=== PATIENT | female | born 1975 | race Caucasian/White ===

== ENCOUNTER 2019-02-19 07:54 | Day surgery (SDC) | payer OTHER ==
[~2019-02-19] VITALS: Ht 167.6 cm; Wt 91.2 kg
[2019-02-19] MEDS ORDERED: LEVO0.124 PO (08:15)
[2019-02-19] MEDS ORDERED: ALPR0.252 PO (08:15)
[2019-02-19] MEDS ORDERED: SEVOFLURANE 250 ML BTL INH ONE (10:00)
[2019-02-19] MEDS ORDERED: ONDANSETRON 4 MG/2 ML VIAL ONE (10:00)
[2019-02-19] MEDS ORDERED: KETOROLAC 30 MG/ML VIAL ONE (10:00)
[2019-02-19] MEDS ORDERED: DEXAMETHASONE 4 MG/ML VIAL ONE (10:00)
[2019-02-19] MEDS ORDERED: PROPOFOL 200 MG/20 ML VIAL IV ONE (10:00)
[2019-02-19] MEDS ORDERED: MIDAZOLAM 2 MG/2 ML VIAL ONE (10:08)
[2019-02-19] MEDS ORDERED: fentaNYL 0.05 MG/ML VIAL ONE (10:08)
[2019-02-19] MEDS ORDERED: MEPERIDINE 25 MG/ML SYR ONE (10:09)
[2019-02-19] MEDS ORDERED: BUPIVACAINE-MPF 0.25% 30 ML VIAL INJ ONE (10:12)
[2019-02-19] MEDS ORDERED: LACTATED RINGERS 1,000 ML IV SCH (10:29)
[2019-02-19] MEDS ORDERED: diphenhydrAMINE 50 MG/ML VIAL IVP PRN (10:30)
[2019-02-19] MEDS ORDERED: MEPERIDINE 25 MG/ML SYR IVP PRN (10:30)
[2019-02-19] MEDS ORDERED: ONDANSETRON 4 MG/2 ML VIAL IVP PRN (10:30)
[2019-02-19] MEDS ORDERED: HYDROmorphone 1 MG/ML AMP IVP PRN ×2 (10:30→11:10)
[2019-02-19] MEDS ORDERED: NEOMYCIN/POLYMYXIN/BACITRACIN OIN 15 GM TUBE TP ONE (11:00)
[2019-02-19] MEDS ORDERED: NACL 0.9% 1,000 ML IV SCH (11:06)
[2019-02-19] MEDS ORDERED: HYDROcodone/APAP 5/325 MG 1 TAB TAB PO PRN (11:10)
[2019-02-19] MEDS ORDERED: ONDANSETRON 4 MG/2 ML VIAL IV PRN (11:10)
[2019-02-19] MEDS ORDERED: MORPHINE SULFATE 4 MG/ML SYR IV PRN (11:10)
[2019-02-19] MEDS ORDERED: MORPHINE SULFATE 2 MG/ML SYR IVP PRN (11:10)
== END 2019-02-19 12:15 | disposition home or self-care (01) ==
LOC: MDS 07:54 → MMU 07:55 → MDS 12:15
PROVIDERS: ATTEND Surgery
DX: R59.9 Enlarged lymph nodes, unspecified (principal); L91.8 Other hypertrophic disorders of the skin; F41.9 Anxiety disorder, unspecified; E66.9 Obesity, unspecified; Z68.32 Body mass index [BMI] 32.0-32.9, adult; Z85.850 Personal history of malignant neoplasm of thyroid; Z90.710 Acquired absence of both cervix and uterus; Z98.890 Other specified postprocedural states; Z79.899 Other long term (current) drug therapy
CPT/HCPCS: 11200; 38520; 71045; 88304; 88305; 93005; J0690; J1100; J1885; J2175; J2250; J2405; J2704; J3010; J3490; J7060; J7120

== ENCOUNTER 2019-04-23 05:56 | Day surgery (SDC) | payer OTHER ==
[~2019-04-23] VITALS: Ht 167.6 cm; Wt 90.7 kg
[~2019-04-23 05:56] MED LIST: ALPR0.252 PO; LEVO0.124 PO
[2019-04-23] MEDS ORDERED: BUPIVACAINE-MPF/EPI 0.25% 30 ML VIAL INJ ONE (06:59)
[2019-04-23] MEDS ORDERED: KETOROLAC 30 MG/ML VIAL ONE (07:30)
[2019-04-23] MEDS ORDERED: PROPOFOL 200 MG/20 ML VIAL IV ONE ×2 (07:30→09:25)
[2019-04-23] MEDS ORDERED: SEVOFLURANE 250 ML BTL INH ONE (07:30)
[2019-04-23] MEDS ORDERED: ROCURONIUM 50 MG/5 ML VIAL IV ONE (07:30)
[2019-04-23] MEDS ORDERED: DEXAMETHASONE 4 MG/ML VIAL ONE (07:30)
[2019-04-23] MEDS ORDERED: GLYCOPYRROLATE 0.2 MG/ML VIAL ONE (07:30)
[2019-04-23] MEDS ORDERED: PHENYLEPHRINE 10 MG/ML VIAL ONE (07:30)
[2019-04-23] MEDS ORDERED: fentaNYL 0.05 MG/ML VIAL ONE (07:51)
[2019-04-23] MEDS ORDERED: MIDAZOLAM 2 MG/2 ML VIAL ONE (07:51)
[2019-04-23] MEDS ORDERED: MEPERIDINE 50 MG/ML SYR ONE (07:52)
[2019-04-23] MEDS ORDERED: LACTATED RINGERS 1,000 ML IV SCH (08:10)
[2019-04-23] MEDS ORDERED: MEPERIDINE 25 MG/ML SYR IVP PRN (08:10)
[2019-04-23] MEDS ORDERED: ONDANSETRON 4 MG/2 ML VIAL IVP PRN (08:10)
[2019-04-23] MEDS ORDERED: diphenhydrAMINE 50 MG/ML VIAL IVP PRN (08:10)
[2019-04-23] MEDS ORDERED: HYDROmorphone 1 MG/ML AMP IVP PRN ×2 (08:10→09:25)
[2019-04-23] MEDS ORDERED: MORPHINE SULFATE 2 MG/ML SYR IVP PRN (09:25)
[2019-04-23] MEDS ORDERED: MORPHINE SULFATE 4 MG/ML SYR IV PRN (09:25)
[2019-04-23] MEDS ORDERED: ONDANSETRON 4 MG/2 ML VIAL IV PRN (09:25)
== END 2019-04-23 11:09 | disposition home or self-care (01) ==
LOC: MDS 05:56 → MMU 05:59 → MDS 11:09
PROVIDERS: ATTEND Surgery
DX: K80.10 Calculus of gallbladder with chronic cholecystitis without obstruction (principal); E66.9 Obesity, unspecified; E03.9 Hypothyroidism, unspecified; F41.9 Anxiety disorder, unspecified; Z85.850 Personal history of malignant neoplasm of thyroid; Z98.890 Other specified postprocedural states; Z90.710 Acquired absence of both cervix and uterus; Z79.899 Other long term (current) drug therapy
CPT/HCPCS: 47562; 71045; 82374; 88304; J0690; J1100; J1885; J2175; J2250; J2370; J2704; J3010; J3490; J7030; J7060; J7120

== ENCOUNTER 2019-06-23 08:36 | Emergency (ER) | payer OTHER ==
[~2019-06-23] VITALS: Ht 167.6 cm; Wt 94.3 kg
[2019-06-23 08:41] VITALS: BP 147/92
[2019-06-23] MEDS ORDERED: predniSONE 20 MG TAB PO ONE (09:00)
[2019-06-23 09:47] VITALS: BP 147/92
== END 2019-06-23 09:47 | disposition home or self-care (01) ==
LOC: MED 08:36
DX: J02.8 Acute pharyngitis due to other specified organisms (principal); B97.89 Other viral agents as the cause of diseases classified elsewhere; E07.9 Disorder of thyroid, unspecified; Z90.49 Acquired absence of other specified parts of digestive tract; Z98.890 Other specified postprocedural states; Z79.899 Other long term (current) drug therapy
CPT/HCPCS: 99283; J7512

== ENCOUNTER 2019-08-06 16:11 | Emergency (ER) | payer OTHER ==
[~2019-08-06] VITALS: Ht 165.1 cm; Wt 94.1 kg
[2019-08-06 16:21] VITALS: BP 151/95
--- NOTE | 2019-08-06 16:22 | NUR ---
SRIKANTH OLIVARES. TO LOBBY, ARNAUD.
--- NOTE | 2019-08-06 16:43 | NUR ---
PT AMB TO BED 7
--- NOTE | 2019-08-06 16:46 | NUR ---
44/F BIB SELF C/O NAUSEA,MID UPPER BACK PAIN X5 DAYS. DENIES DYSURIA OR INJURY/TRAUMA. PATIENT STATES PAIN OF 8/10 1AT THIS TIME. PATIENT POSITIONED FOR COMFORT; HOB ELEVATED; BEDRAILS UP X; BED DOWN. ER MD MADE AWARE OF PT STATUS.
[2019-08-06] MEDS ORDERED: KETOROLAC 30 MG/ML VIAL IM ONE (17:35)
--- NOTE | 2019-08-06 18:50 | NUR ---
X RAY AT BEDSIDE
--- NOTE | 2019-08-06 19:10 | NUR ---
Pt report given to LIBAN RN. Transfer of care at this time.
[2019-08-06 19:18] VITALS: BP 132/87
--- NOTE | 2019-08-06 19:18 | NUR ---
Patient discharged with v/s stable. Written and verbal after care instructions given and explained. Patient alert, oriented and verbalized understanding of instructions. Ambulatory with steady gait. All questions addressed prior to discharge. ID band removed. Patient advised to follow up with PMD. Rx of FLEXERIL 10MG AND NAPROXEN 375MG given. Patient educated on indication of medication including possible reaction and side effects. Opportunity to ask questions provided and answered.
== END 2019-08-06 19:18 | disposition home or self-care (01) ==
LOC: MED 16:11
DX: S29.012A Strain of muscle and tendon of back wall of thorax, initial encounter (principal); Z85.850 Personal history of malignant neoplasm of thyroid; Z90.710 Acquired absence of both cervix and uterus; Z90.49 Acquired absence of other specified parts of digestive tract; Z79.899 Other long term (current) drug therapy; X58.XXXA Exposure to other specified factors, initial encounter; Y92.89 Other specified places as the place of occurrence of the external cause; Y93.89 Activity, other specified; Y99.8 Other external cause status
CPT/HCPCS: 71045; 81002; 96372; 99283; J1885

== ENCOUNTER 2019-08-13 18:29 | Emergency (ER) | payer OTHER ==
[~2019-08-13] VITALS: Ht 165.1 cm; Wt 95.3 kg
[2019-08-13 19:11] VITALS: BP 146/96
[2019-08-13 20:11] LABS: BASOPHILS # (AUTO) 0.1 K/uL (0.00-0.22); EOSINOPHILS # (AUTO) 0.2 K/uL (0-0.4); EOSINOPHILS % (AUTO) 1.9 % (0.0-4.0); HEMATOCRIT 42.9 % (36-48); HEMOGLOBIN 13.8 g/dL (12.0-16.0); LYMPHOCYTES # (AUTO) 2.7 K/uL (2.5-16.5); LYMPHOCYTES % (AUTO) 27.6 % (20.5-51.1); MEAN CORPUSCULAR HEMOGLOBIN 27 pg (27-31); MEAN CORPUSCULAR HGB CONC 32 g/dL (33-37); MEAN CORPUSCULAR VOLUME 84.7 fL (80-94); MONOCYTES # (AUTO) 0.5 K/uL (0.8-1.0); MONOCYTES % (AUTO) 5.2 % (1.7-9.3); NEUTROPHILS # (AUTO) 6.3 K/uL (1.8-7.7); NEUTROPHILS % (AUTO) 64.3 % (42.2-75.2); PLATELET COUNT (AUTO) 193 K/uL (140-450); RED BLOOD CELL COUNT(AUTO) 5.07 MIL/uL (4.20-5.40); RED CELL DISTRIBUTION WIDTH 13.8 % (11.6-13.7); WHITE BLOOD COUNT (AUTO) 9.8 K/uL (4.8-10.8)
[2019-08-13 20:28] LABS: ANION GAP 13.9 (8-16); CARBON DIOXIDE 28.2 mmol/L (21-32); CREATININE 0.6 mg/dL (0.6-1.3); POTASSIUM 4.1 mmol/L (3.5-5.1)
[2019-08-13 20:34] LABS: ALBUMIN 3.9 g/dL (3.4-5.0); TOTAL BILIRUBIN 0.8 mg/dL (0.0-1.0)
--- NOTE | 2019-08-13 21:29 | NUR ---
PT AMBULATED TO BED 08
--- NOTE | 2019-08-13 21:32 | NUR ---
PT CAME TO ER C/O EPIGASTRIC PAIN X3 DAYS. PT STATES "I FEEL BLOATED AND CONSTIPATED EVEN THOUGH I AM GOING TO THE BATHROOM." PT PAIN LEVEL 6/10, SHARP AND TENDER TO TOUCH. BOWEL SOUNDS ACTIVE X 4 QUADRANTS. ABDOMEN FIRM AND TENDER TO TOUCH. LAST BM TODAY 08/13/19, SOFT. PT ALSO HAS NAUSEA. NO V/D. NKA. MED HX: THYROID CANCER 2017, HYSTERECTOMY 2017, AND GALLBLADDER REMOVAL 2018. SAFETY MEASURES IN PLACE. WAITING FOR ERMD TO EVALUATE PT.
--- NOTE | 2019-08-13 21:40 | NUR ---
ULTRASOUND AT BEDSIDE
[2019-08-13] MEDS ORDERED: KETOROLAC 60 MG/2 ML VIAL IM ONE (22:15)
--- NOTE | 2019-08-13 22:50 | NUR ---
PT HAS NAUSEA. ERMD MADE AWARE.
[2019-08-13] MEDS ORDERED: ONDANSETRON 4 MG ODT PO ONE (22:55)
--- NOTE | 2019-08-13 23:15 | NUR ---
ERMD AT BEDSIDE
[2019-08-13 23:34] VITALS: BP 135/80
--- NOTE | 2019-08-13 23:34 | NUR ---
Patient discharged with v/s stable. Written and verbal after care instructions given and explained. Pt encouraged to avoid spicy and fatty foods. Patient alert, oriented and verbalized understanding of instructions. Ambulatory with steady gait. All questions addressed prior to discharge. ID band removed. Patient advised to follow up with PMD. Rx of zofran and prilosec was given. Patient educated on indication of medication including possible reaction and side effects. Opportunity to ask questions provided and answered.
== END 2019-08-13 23:34 | disposition home or self-care (01) ==
LOC: MED 18:29
DX: R10.13 Epigastric pain (principal); R11.0 Nausea; E89.0 Postprocedural hypothyroidism; Z85.850 Personal history of malignant neoplasm of thyroid; Z98.890 Other specified postprocedural states; Z90.710 Acquired absence of both cervix and uterus; Z90.49 Acquired absence of other specified parts of digestive tract; Z79.899 Other long term (current) drug therapy
CPT/HCPCS: 36415; 76705; 80053; 81002; 83690; 85025; 96372; 99284; J1885; Q0092; Q0162

== ENCOUNTER 2019-09-16 13:42 | Emergency (ER) | payer OTHER ==
[~2019-09-16] VITALS: Ht 165.1 cm; Wt 95.0 kg
[2019-09-16 13:59] VITALS: BP 117/64
--- NOTE | 2019-09-16 14:07 | NUR ---
Patient ambulated to bed 12. RN evaluating patient at bedside.
--- NOTE | 2019-09-16 14:37 | NUR ---
PT BIB SELF C/O INTERMITENT SHARP BL LOWER ABD PAIN X 4 DAYS. TX WITH NORCO AND IBUPROFEN, INCREASES W/ SITTING. + NAUSEA, - FEVER, - DIARRHEA, + FREQUENCY. PT REPORTS CONSTIPATIONS STATES LAST BM WAS TODAY. VSS ER MD TO SEE PT. MEDHX:THYROID CANCER, THYROIDECTOMY, GALSTONES, PARTIAL HYSTERECTOMY RX:LEVOTHYROXINE
[2019-09-16] MEDS ORDERED: LACTULOSE 20 GM/30 ML UDC PO ONE (15:00)
[2019-09-16] MEDS ORDERED: DICYCLOMINE HCL LIQUID 10 MG/5 ML UDC PO ONE (15:00)
[2019-09-16] MEDS ORDERED: KETOROLAC 60 MG/2 ML VIAL IM ONE (15:00)
--- NOTE | 2019-09-16 15:11 | NUR ---
US tech at bedside for exam.
[2019-09-16 16:00] LABS: APPEARANCE,URINE CLEAR (CLEAR); BILIRUBIN,URINE NEGATIVE (NEGATIVE); BLOOD, URINE NEGATIVE (NEGATIVE); COLOR,URINE YELLOW (YELLOW); LEUKOCYTE ESTERASE ,URINE NEGATIVE (NEGATIVE); NITRITE, URINE NEGATIVE (NEGATIVE); UGLUCOSE NEGATIVE (NEGATIVE)
[2019-09-16 16:24] VITALS: BP 117/64
== END 2019-09-16 16:24 | disposition home or self-care (01) ==
LOC: MED 13:42
DX: R10.2 Pelvic and perineal pain (principal); Z90.710 Acquired absence of both cervix and uterus; Z86.39 Personal history of other endocrine, nutritional and metabolic disease; Z79.899 Other long term (current) drug therapy
CPT/HCPCS: 74018; 76856; 81003; 81025; 96372; 99284; J1885; Q0092

== ENCOUNTER 2020-01-20 20:10 | Emergency (ER) | payer OTHER ==
[~2020-01-20] VITALS: Ht 165.1 cm; Wt 90.7 kg
[2020-01-20 20:20] VITALS: BP 120/82
--- NOTE | 2020-01-20 20:23 | NUR ---
TO LOBBY A/W BED AMBULATORY
--- NOTE | 2020-01-20 21:15 | NUR ---
PT MOVED TO BED 11
[2020-01-20] MEDS ORDERED: INTUBATION KIT MC ONE (21:17)
--- NOTE | 2020-01-20 21:50 | NUR ---
HELPING PRIMARY NURSE. PT C/O DIFFUSE ABD PAIN X 4 DAYS. PT DENIES N/V/D. PT DENIES URINARY SYMPTOMS. PT STATES HAVING GALLBLADDER REMOVED IN THE PAST. PT DENIES HAVING THIS PAIN IN PAST. PT ALSO STATE HAVING IRREGULAR BOWEL MOVEMENT. PT HAVING HYPER ACTIVE BOWEL SOUNDS. SKIN IS PINK/WARM/DRY; AAOX4 WITH EVEN AND STEADY GAIT; LUNGS CLEAR BL; HR EVEN AND REGULAR; PT DENIES ANY FEVER, CP, SOB, OR COUGH AT THIS TIME; VSS; PATIENT POSITIONED FOR COMFORT; HOB ELEVATED; BEDRAILS UP X2; BED DOWN. ER MD MADE AWARE OF PT STATUS.
[2020-01-20] MEDS ORDERED: KETOROLAC 30 MG/ML VIAL IVP ONE (22:50)
[2020-01-21 00:11] LABS: BASOPHILS # (AUTO) 0.1 K/uL (0.00-0.22); BASOPHILS % (AUTO) 0.8 % (0.0-2.0); EOSINOPHILS # (AUTO) 0.3 K/uL (0-0.4); EOSINOPHILS % (AUTO) 3.2 % (0.0-4.0); HEMATOCRIT 38.1 % (36-48); HEMOGLOBIN 13.1 g/dL (12.0-16.0); LYMPHOCYTES # (AUTO) 2.8 K/uL (2.5-16.5); LYMPHOCYTES % (AUTO) 33.1 % (20.5-51.1); MEAN CORPUSCULAR HEMOGLOBIN 28 pg (27-31); MEAN CORPUSCULAR HGB CONC 34 g/dL (33-37); MEAN CORPUSCULAR VOLUME 81.6 fL (80-94); MONOCYTES # (AUTO) 0.5 K/uL (0.8-1.0); NEUTROPHILS # (AUTO) 4.8 K/uL (1.8-7.7); NEUTROPHILS % (AUTO) 56.9 % (42.2-75.2); PLATELET COUNT (AUTO) 195 K/uL (140-450); RED BLOOD CELL COUNT(AUTO) 4.67 MIL/uL (4.20-5.40); RED CELL DISTRIBUTION WIDTH 13.6 % (11.6-13.7); WHITE BLOOD COUNT (AUTO) 8.4 K/uL (4.8-10.8)
[2020-01-21] MEDS ORDERED: KETOROLAC 30 MG/ML VIAL ONE (00:15)
[2020-01-21 00:38] LABS: ALBUMIN 3.8 g/dL (3.4-5.0); ANION GAP 8.9 (8-16); CREATININE 0.9 mg/dL (0.6-1.3); POTASSIUM 3.9 mmol/L (3.5-5.1); TOTAL BILIRUBIN 0.4 mg/dL (0.0-1.0)
[2020-01-21 01:24] VITALS: BP 142/95
== END 2020-01-21 01:24 | disposition home or self-care (01) ==
LOC: MED 20:10
DX: R10.13 Epigastric pain (principal); K59.00 Constipation, unspecified; Z90.49 Acquired absence of other specified parts of digestive tract; Z90.89 Acquired absence of other organs
CPT/HCPCS: 36415; 74018; 74176; 80053; 81002; 81025; 83690; 85025; 96374; 99284; J1885

== ENCOUNTER 2020-03-11 17:12 | Emergency (ER) | payer OTHER ==
[~2020-03-11] VITALS: Ht 167.6 cm; Wt 96.2 kg
[2020-03-11 17:14] VITALS: BP 177/100
--- NOTE | 2020-03-11 17:21 | NUR ---
pt ambulated to bathroom, steady gait.
--- NOTE | 2020-03-11 17:30 | NUR ---
44 Y/F PRESENTS TO ED FOR RLQ and LLQ pain x 4 days. + Nausea - V/D. PT REPORTS 8/10 CONSTANT SHARP PAIN THAT RADIATED ALL THROUGHOUT ABD. PT DENIES ANY ALLEVIATING OR AGGRAVATING FACTORS. Last BM 03/11/20, small, hard. PT REPORTS SHE HAD A BETTER BM WHILE HERE IN THE ED AND FEELS LESS BLOATED. Pt taking stool softeners every day. Pt dx with constipation in January. PT A &O X 4. RR EVEN, LUNGS CLEAR. ABD LARGE, ROUND, TENDER UPON PALPATION. BS ACTIVE. Med hx: thyroid cancer, gallbladder removal NKDA
--- NOTE | 2020-03-11 17:32 | NUR ---
Dr. Mo at bedside.
[2020-03-11 17:57] VITALS: BP 149/77
--- NOTE | 2020-03-11 17:57 | NUR ---
Patient discharged with v/s stable. Written and verbal after care instructions given and explained. Patient alert, oriented and verbalized understanding of instructions. Ambulatory with steady gait. All questions addressed prior to discharge. ID band removed. Patient advised to follow up with PMD. Rx of Zofran and Omeprazole was given. Patient educated on indication of medication including possible reaction and side effects. Opportunity to ask questions provided and answered.
== END 2020-03-11 17:57 | disposition home or self-care (01) ==
LOC: MED 17:12
DX: K59.00 Constipation, unspecified (principal); K21.9 Gastro-esophageal reflux disease without esophagitis; R03.0 Elevated blood-pressure reading, without diagnosis of hypertension; E07.9 Disorder of thyroid, unspecified; F41.9 Anxiety disorder, unspecified; Z85.850 Personal history of malignant neoplasm of thyroid; Z90.49 Acquired absence of other specified parts of digestive tract; Z90.710 Acquired absence of both cervix and uterus; Z79.899 Other long term (current) drug therapy
CPT/HCPCS: 81002; 81025; 99283

== ENCOUNTER 2020-09-15 13:05 | Emergency (ER) | payer OTHER ==
[~2020-09-15] VITALS: Ht 167.6 cm; Wt 90.7 kg
--- NOTE | 2020-09-15 13:10 | NUR ---
Note margie in EDM - 09/15/20 at 1344 by MED PT C/O PROGRESSIVELY WORSENING CONSTANT RJ ABDOMINAL PAIN RADIATING TO LOWER BACK ACCOMPANIED BY FREQUECY OF URINATION, ODOROUS/YELLOWISH DISCHARGE, VAGINAL ITCHINESS, AND DYSURIA FOR 7 DAYS. DENIES FEVER, CHILLS, COUGH, OR SICK CONTACT.
[2020-09-15 13:18] VITALS: BP 152/91
--- NOTE | 2020-09-15 13:20 | NUR ---
PT C/O PROGRESSIVELY WORSENING CONSTANT RJ ABDOMINAL PAIN RADIATING TO LOWER BACK ACCOMPANIED BY FREQUECY OF URINATION, ODOROUS/YELLOWISH DISCHARGE, VAGINAL ITCHINESS, AND DYSURIA FOR 7 DAYS. DENIES FEVER, CHILLS, COUGH, OR SICK CONTACT.
[2020-09-15 13:57] LABS: BASOPHILS # (AUTO) 0.1 K/uL (0.00-0.22); BASOPHILS % (AUTO) 1.2 % (0.0-2.0); EOSINOPHILS # (AUTO) 0.2 K/uL (0-0.4); EOSINOPHILS % (AUTO) 2.1 % (0.0-4.0); HEMATOCRIT 40.2 % (36-48); HEMOGLOBIN 13.2 g/dL (12.0-16.0); LYMPHOCYTES # (AUTO) 2.4 K/uL (2.5-16.5); LYMPHOCYTES % (AUTO) 25.5 % (20.5-51.1); MEAN CORPUSCULAR HEMOGLOBIN 27 pg (27-31); MEAN CORPUSCULAR HGB CONC 33 g/dL (33-37); MEAN CORPUSCULAR VOLUME 82.7 fL (80-94); MONOCYTES # (AUTO) 0.6 K/uL (0.8-1.0); MONOCYTES % (AUTO) 6.1 % (1.7-9.3); NEUTROPHILS % (AUTO) 65.1 % (42.2-75.2); PLATELET COUNT (AUTO) 213 K/uL (140-450); RED BLOOD CELL COUNT(AUTO) 4.86 MIL/uL (4.20-5.40); WHITE BLOOD COUNT (AUTO) 9.2 K/uL (4.8-10.8)
[2020-09-15 14:02] LABS: APPEARANCE,URINE CLEAR (CLEAR); COLOR,URINE YELLOW (YELLOW)
[2020-09-15 14:03] LABS: BILIRUBIN,URINE NEGATIVE (NEGATIVE); BLOOD, URINE NEGATIVE (NEGATIVE); LEUKOCYTE ESTERASE ,URINE NEGATIVE (NEGATIVE); NITRITE, URINE NEGATIVE (NEGATIVE); PH,URINE 7.5 (5.0-9.0); UGLUCOSE NN (NEGATIVE)
[2020-09-15 14:11] LABS: ALBUMIN 3.6 g/dL (3.4-5.0); ANION GAP 12.1 (8-16); CREATININE 0.6 mg/dL (0.6-1.3); POTASSIUM 4.1 mmol/L (3.5-5.1); TOTAL BILIRUBIN 0.4 mg/dL (0.0-1.0)
[2020-09-15] MEDS ORDERED: ONDANSETRON 4 MG/2 ML VIAL IVP ONE (14:55)
[2020-09-15] MEDS ORDERED: KETOROLAC 30 MG/ML VIAL IVP ONE (14:55)
[2020-09-15] MEDS ORDERED: NACL 0.9% 1,000 ML IV ONE (15:00)
--- NOTE | 2020-09-15 15:58 | NUR ---
PT IS BRINGING BACK FROM CT SCAN VIA WC.
--- NOTE | 2020-09-15 16:44 | NUR ---
Dr. oM is evaluating the patient at bedside.
[2020-09-15 17:06] VITALS: BP 123/81
--- NOTE | 2020-09-15 17:06 | NUR ---
Patient discharged with v/s stable. Written and verbal after care instructions given and explained. Patient alert, oriented and verbalized understanding of instructions. Ambulatory with steady gait. All questions addressed prior to discharge. ID band removed. Patient advised to follow up with PMD. Rx of Naprosyn, Zofran, and Lomotil given. Patient educated on indication of medication including possible reaction and side effects. Opportunity to ask questions provided and answered.
== END 2020-09-15 17:06 | disposition home or self-care (01) ==
LOC: MED 13:05
DX: R10.9 Unspecified abdominal pain (principal); E07.9 Disorder of thyroid, unspecified; Z85.9 Personal history of malignant neoplasm, unspecified; Z90.89 Acquired absence of other organs; Z90.711 Acquired absence of uterus with remaining cervical stump; Z90.49 Acquired absence of other specified parts of digestive tract; Z79.899 Other long term (current) drug therapy
CPT/HCPCS: 36415; 74176; 80053; 81003; 83690; 85025; 96361; 96374; 96375; 99284; J1885; J2405; J7030

== ENCOUNTER 2020-11-27 17:42 | Emergency (ER) | payer OTHER ==
[~2020-11-27] VITALS: Ht 167.6 cm; Wt 93.0 kg
[2020-11-27 17:57] VITALS: BP 135/77
--- NOTE | 2020-11-27 18:05 | NUR ---
ANTONINA. HANDED ON URINE CUP.
[2020-11-27 19:30] VITALS: BP 135/77
--- NOTE | 2020-11-27 20:05 | NUR ---
SEEN AND EXAMINED BY ADARSH WITH ORDER AND CARRIED OUT
[2020-11-27] MEDS ORDERED: KETOROLAC 30 MG/ML VIAL IM ONE (23:00)
[2020-11-27] MEDS ORDERED: ACETAMINOPHEN EXTRA STRENGTH 500 MG TAB PO ONE (23:25)
--- NOTE | 2020-11-27 23:51 | NUR ---
Patient discharged with v/s stable. Written and verbal after care instructions given and explained. Patient alert, oriented and verbalized understanding of instructions. Ambulatory with steady gait. All questions addressed prior to discharge. ID band removed. Patient advised to follow up with PMD. Rx of bentyl and naproxen given. Patient educated on indication of medication including possible reaction and side effects. Opportunity to ask questions provided and answered.
== END 2020-11-27 23:51 | disposition home or self-care (01) ==
LOC: MED 17:42
DX: R10.32 Left lower quadrant pain (principal); R42 Dizziness and giddiness; E07.9 Disorder of thyroid, unspecified; Z79.899 Other long term (current) drug therapy; Z85.850 Personal history of malignant neoplasm of thyroid
CPT/HCPCS: 81002; 96372; 99284

== ENCOUNTER 2020-12-04 19:35 | Emergency (ER) | payer OTHER ==
[~2020-12-04] VITALS: Ht 167.6 cm; Wt 94.3 kg
[2020-12-04 19:40] VITALS: BP 121/85
--- NOTE | 2020-12-04 19:50 | NUR ---
PT ambulated to bed 04.
--- NOTE | 2020-12-04 20:05 | NUR ---
AMBULATED TO BED 4 FROM TRIAGE WITH C/O SEVERE ABDOMINAL PAIN AND BLOATING. WAS SEEN HERE A COUPLE OF WEEKS AGO FOR SIMILAR COMPLAINTS. PT STAES SHE IS FEELING AND IS BLOATING MORE. ABDOMEN IS LARGE, ROUND, FIRM, AND TENDER. BMS DESCRIBED IRREGULAR, NOT WNL. EXAMINED BY DR. HIGHTOWER
[2020-12-04 21:15] LABS: BASOPHILS # (AUTO) 0.1 K/uL (0.00-0.22); BASOPHILS % (AUTO) 0.8 % (0.0-2.0); EOSINOPHILS # (AUTO) 0.2 K/uL (0-0.4); EOSINOPHILS % (AUTO) 2.5 % (0.0-4.0); HEMATOCRIT 40.5 % (36-48); HEMOGLOBIN 13.1 g/dL (12.0-16.0); LYMPHOCYTES # (AUTO) 2.9 K/uL (2.5-16.5); LYMPHOCYTES % (AUTO) 33.9 % (20.5-51.1); MEAN CORPUSCULAR HEMOGLOBIN 27 pg (27-31); MEAN CORPUSCULAR HGB CONC 32 g/dL (33-37); MEAN CORPUSCULAR VOLUME 83.6 fL (80-94); MONOCYTES # (AUTO) 0.6 K/uL (0.8-1.0); MONOCYTES % (AUTO) 6.9 % (1.7-9.3); NEUTROPHILS # (AUTO) 4.7 K/uL (1.8-7.7); NEUTROPHILS % (AUTO) 55.9 % (42.2-75.2); PLATELET COUNT (AUTO) 210 K/uL (140-450); RED BLOOD CELL COUNT(AUTO) 4.85 MIL/uL (4.20-5.40); RED CELL DISTRIBUTION WIDTH 13.5 % (11.6-13.7); WHITE BLOOD COUNT (AUTO) 8.5 K/uL (4.8-10.8)
[2020-12-04 21:26] LABS: ANION GAP 9.2 (8-16); CARBON DIOXIDE 30.7 mmol/L (21-32); CREATININE 0.6 mg/dL (0.6-1.3); POTASSIUM 3.9 mmol/L (3.5-5.1); TOTAL BILIRUBIN 0.3 mg/dL (0.0-1.0)
[2020-12-04 22:43] LABS: APPEARANCE,URINE HAZY (CLEAR); BILIRUBIN,URINE NEGATIVE (NEGATIVE); BLOOD, URINE NEGATIVE (NEGATIVE); COLOR,URINE YELLOW (YELLOW); LEUKOCYTE ESTERASE ,URINE NEGATIVE (NEGATIVE); NITRITE, URINE NEGATIVE (NEGATIVE); PH,URINE 8.5 (5.0-9.0); UGLUCOSE NEGATIVE (NEGATIVE)
[2020-12-04 23:01] LABS: RBC,URINE 0-5 /HPF (0-5); WBC,URINE 0-5 /HPF (0-5)
[2020-12-04 23:04] VITALS: BP 121/85
--- NOTE | 2020-12-04 23:04 | NUR ---
EXAM RESULTS HAVE BEEN RETURNED AND REVIEWED. PT READY FOR DISCHARGE. Patient discharged with v/s stable. Written and verbal after care instructions given and explained. Patient alert, oriented and verbalized understanding of instructions. Ambulatory with steady gait. All questions addressed prior to discharge. ID band removed. Patient advised to follow up with PMD. Rx of CITRATE OF MAG, MIRALAX, AND ZOFRAN given. Patient educated on indication of medication including possible reaction and side effects. Opportunity to ask questions provided and answered.
== END 2020-12-04 23:04 | disposition home or self-care (01) ==
LOC: MED 19:35
DX: R10.9 Unspecified abdominal pain (principal); F41.9 Anxiety disorder, unspecified; R20.2 Paresthesia of skin; Z85.850 Personal history of malignant neoplasm of thyroid; Z98.890 Other specified postprocedural states; Z79.899 Other long term (current) drug therapy
CPT/HCPCS: 36415; 74021; 80053; 81001; 81025; 83690; 85025; 99284

== ENCOUNTER 2020-12-17 15:17 | Emergency (ER) | payer OTHER ==
[~2020-12-17] VITALS: Ht 165.1 cm; Wt 90.7 kg
[2020-12-17 15:41] VITALS: BP 142/77
[2020-12-17] MEDS ORDERED: KETOROLAC 60 MG/2 ML VIAL IM ONE (16:25)
[2020-12-17] MEDS ORDERED: DICYCLOMINE HCL LIQUID 20 MG, ALUMINUM HYD/MAG/SIMETHICONE 30 ML, LIDOCAINE VISCOUS 2% ... PO ONE ×3 (16:30)
[2020-12-17] MEDS ORDERED: ALUMINUM HYD/MAG/SIMETHICONE 30 ML UDC ONE ×2 (16:40→16:44)
[2020-12-17] MEDS ORDERED: LIDOCAINE VISCOUS 2% 20 ML UDC ONE (16:40)
[2020-12-17] MEDS ORDERED: DICYCLOMINE HCL LIQUID 10 MG/5 ML UDC ONE (16:40)
[2020-12-17 16:44] LABS: BASOPHILS # (AUTO) 0.2 K/uL (0.00-0.22); BASOPHILS % (AUTO) 2.9 % (0.0-2.0); EOSINOPHILS # (AUTO) 0.2 K/uL (0-0.4); HEMATOCRIT 39.3 % (36-48); HEMOGLOBIN 12.7 g/dL (12.0-16.0); LYMPHOCYTES # (AUTO) 1.7 K/uL (2.5-16.5); LYMPHOCYTES % (AUTO) 21.3 % (20.5-51.1); MEAN CORPUSCULAR HEMOGLOBIN 27 pg (27-31); MEAN CORPUSCULAR HGB CONC 32 g/dL (33-37); MEAN CORPUSCULAR VOLUME 83.4 fL (80-94); MONOCYTES # (AUTO) 0.5 K/uL (0.8-1.0); MONOCYTES % (AUTO) 6.2 % (1.7-9.3); NEUTROPHILS # (AUTO) 5.3 K/uL (1.8-7.7); NEUTROPHILS % (AUTO) 67.6 % (42.2-75.2); PLATELET COUNT (AUTO) 179 K/uL (140-450); RED BLOOD CELL COUNT(AUTO) 4.71 MIL/uL (4.20-5.40); RED CELL DISTRIBUTION WIDTH 13.2 % (11.6-13.7); WHITE BLOOD COUNT (AUTO) 7.8 K/uL (4.8-10.8)
[2020-12-17 17:00] LABS: APPEARANCE,URINE CLEAR (CLEAR); BILIRUBIN,URINE NEGATIVE (NEGATIVE); BLOOD, URINE NEGATIVE (NEGATIVE); LEUKOCYTE ESTERASE ,URINE NEGATIVE (NEGATIVE); NITRITE, URINE NEGATIVE (NEGATIVE); PH,URINE 6.5 (5.0-9.0); UGLUCOSE NEGATIVE (NEGATIVE)
[2020-12-17 17:01] LABS: COLOR,URINE STRAW (YELLOW)
[2020-12-17 17:03] LABS: ALBUMIN 3.7 g/dL (3.4-5.0); ANION GAP 11.7 (8-16); CREATININE 0.7 mg/dL (0.6-1.3); POTASSIUM 3.7 mmol/L (3.5-5.1); TOTAL BILIRUBIN 0.3 mg/dL (0.0-1.0)
[2020-12-17 18:26] VITALS: BP 142/77
== END 2020-12-17 18:10 | disposition home or self-care (01) ==
LOC: MED 15:17
DX: R10.11 Right upper quadrant pain (principal); R60.0 Localized edema; E07.9 Disorder of thyroid, unspecified; Z90.49 Acquired absence of other specified parts of digestive tract; Z79.899 Other long term (current) drug therapy; Z85.850 Personal history of malignant neoplasm of thyroid
CPT/HCPCS: 36415; 74176; 80053; 81003; 83690; 85025; 96372; 99284; J1885

== ENCOUNTER 2021-08-06 09:45 | Emergency (ER) | payer OTHER ==
[~2021-08-06] VITALS: Ht 165.1 cm; Wt 93.0 kg
[2021-08-06 09:49] VITALS: BP 147/106
--- NOTE | 2021-08-06 10:32 | NUR ---
LAB BEDSIDE COLLECTING BLOOD WORK
--- NOTE | 2021-08-06 10:36 | NUR ---
PT TAKEN TO CR VIA W/C
[2021-08-06 10:41] LABS: APPEARANCE,URINE CLEAR (CLEAR); BILIRUBIN,URINE NEGATIVE (NEGATIVE); BLOOD, URINE NEGATIVE (NEGATIVE); COLOR,URINE YELLOW (YELLOW); LEUKOCYTE ESTERASE ,URINE NEGATIVE (NEGATIVE); NITRITE, URINE NEGATIVE (NEGATIVE); PH,URINE 5.5 (5.0-9.0); UGLUCOSE NEGATIVE (NEGATIVE)
--- NOTE | 2021-08-06 10:41 | NUR ---
46/F C/C OF LOW BACK PAIN X5 DAYS, DENIES INJURY OR TRAUMA. STATES PAIN IS RADIATING TO BILATERAL SIDES AND LEGS. REPORTS TAKING MOTRIN WITH NO RELIEF. PT DENIES ANY DYSURIA AT THIS TIME. MEDHX: THYROID CANCER ALLERGIES: DENIES
[2021-08-06 10:42] LABS: BASOPHILS % (AUTO) 0.5 % (0.0-2.0); EOSINOPHILS # (AUTO) 0.2 K/uL (0-0.4); EOSINOPHILS % (AUTO) 2.2 % (0.0-4.0); HEMATOCRIT 40.6 % (36-48); HEMOGLOBIN 13.3 g/dL (12.0-16.0); LYMPHOCYTES # (AUTO) 1.9 K/uL (2.5-16.5); LYMPHOCYTES % (AUTO) 25.7 % (20.5-51.1); MEAN CORPUSCULAR HEMOGLOBIN 27 pg (27-31); MEAN CORPUSCULAR HGB CONC 33 g/dL (33-37); MEAN CORPUSCULAR VOLUME 81.2 fL (80-94); MONOCYTES # (AUTO) 0.3 K/uL (0.8-1.0); MONOCYTES % (AUTO) 4.3 % (1.7-9.3); NEUTROPHILS % (AUTO) 67.3 % (42.2-75.2); PLATELET COUNT (AUTO) 201 K/uL (140-450); RED CELL DISTRIBUTION WIDTH 14.4 % (11.6-13.7); WHITE BLOOD COUNT (AUTO) 7.4 K/uL (4.8-10.8)
--- NOTE | 2021-08-06 10:43 | NUR ---
PT TAKEN TO BED [address] VIA W/C
[2021-08-06] MEDS: ONDANSETRON 4 MG ODT PO ONE (10:51)
[2021-08-06] MEDS: KETOROLAC 30 MG/ML VIAL IM ONE (10:51)
[2021-08-06 11:02] LABS: ALBUMIN 3.9 g/dL (3.4-5.0); ANION GAP 13.3 (8-16); CARBON DIOXIDE 26.4 mmol/L (21-32); CREATININE 0.6 mg/dL (0.6-1.3); POTASSIUM 3.7 mmol/L (3.5-5.1); THYROID STIMULATING HORMONE 0.04 uIU/mL (0.34-3.74); TOTAL BILIRUBIN 0.7 mg/dL (0.0-1.0)
[2021-08-06] MEDS ORDERED: ONDA-24 PO (12:09)
[2021-08-06 12:20] VITALS: BP 129/91
== END 2021-08-06 12:21 | disposition home or self-care (01) ==
LOC: MED 09:45
DX: M54.9 Dorsalgia, unspecified (principal); R11.0 Nausea; E07.9 Disorder of thyroid, unspecified; Z79.899 Other long term (current) drug therapy; Z85.850 Personal history of malignant neoplasm of thyroid
CPT/HCPCS: 36415; 74176; 80053; 81003; 81025; 83690; 84443; 84703; 85025; 96372; 99284; J1885; Q0162

== ENCOUNTER 2024-07-23 16:02 | Emergency (ER) | payer OTHER ==
[~2024-07-23] VITALS: Ht 165.1 cm; Wt 82.2 kg
[~2024-07-23 16:02] MED LIST changes: +ONDA-188 PO
[2024-07-23 16:20] VITALS: BP 133/75; PULSE 86; RESP 18; TEMP 98.6; O2SAT 98
--- NOTE | 2024-07-23 16:27 | NUR ---
PT AMB TO FRONT LOBBY
[2024-07-23] MEDS: DEXAMETHASONE 10 MG/ML VIAL IM ONE (17:33)
--- NOTE | 2024-07-23 17:50 | NUR ---
IV ESTABLISHED. 20G R AC. PT NO LONGER GETS PERIODS. MAURO LEON AWARE, AND NO NEED FOR HCG TEST.
[2024-07-23] MEDS: KETOROLAC 30 MG/ML VIAL IVP ONE (17:54)
--- NOTE | 2024-07-23 18:00 | NUR ---
PT SWABBED FOR STREP. SENT TO LAB
[2024-07-23 18:04] LABS: BASOPHILS # (AUTO) 0.1 K/uL (0.00-0.22); BASOPHILS % (AUTO) 0.6 % (0.0-2.0); EOSINOPHILS # (AUTO) 0.1 K/uL (0-0.4); HEMATOCRIT 45.5 % (36-48); HEMOGLOBIN 14.7 g/dL (12.0-16.0); LYMPHOCYTES % (AUTO) 20.8 % (20.5-51.1); MEAN CORPUSCULAR HEMOGLOBIN 27 pg (27-31); MEAN CORPUSCULAR HGB CONC 32 g/dL (33-37); MEAN CORPUSCULAR VOLUME 82.9 fL (80-94); MONOCYTES # (AUTO) 0.5 K/uL (0.8-1.0); MONOCYTES % (AUTO) 5.5 % (1.7-9.3); NEUTROPHILS # (AUTO) 6.9 K/uL (1.8-7.7); NEUTROPHILS % (AUTO) 72.1 % (42.2-75.2); PLATELET COUNT (AUTO) 204 K/uL (140-450); RED BLOOD CELL COUNT(AUTO) 5.49 MIL/uL (4.20-5.40); WHITE BLOOD COUNT (AUTO) 9.6 K/uL (4.8-10.8)
[2024-07-23 18:20] VITALS: BP 124/72; PULSE 83; RESP 18; TEMP 98.4; O2SAT 98
--- NOTE | 2024-07-23 18:28 | NUR ---
PT TAKEN TO CT VIA W/C
[2024-07-23 18:31] LABS: ANION GAP 13.3 (8-16); CALCIUM 9.2 mg/dL (8.5-10.1); CARBON DIOXIDE 27.1 mmol/L (21-32); CREATININE 0.6 mg/dL (0.6-1.3); POTASSIUM 3.4 mmol/L (3.5-5.1)
--- NOTE | 2024-07-23 18:38 | NUR ---
PT BROUGHT BACK FROM CT VIA W/C
[2024-07-23] MEDS ORDERED: AMPICILLIN/SULBACTAM 3 GM VIAL ONE (18:48)
[2024-07-23] MEDS: POTASSIUM CHLORIDE 10 MEQ TABER PO ONE (18:53)
[2024-07-23] MEDS: AMPICILLIN/SULBACTAM 3 GM in NACL 0.9% 100 ML IV ONE (19:00)
[2024-07-23] MEDS ORDERED: IBUP-1842 PO (21:16)
[2024-07-23] MEDS ORDERED: CLIN300C2 PO (21:16)
--- NOTE | 2024-07-23 21:20 | NUR ---
IV removed, catheter intact and site benign. Applied folded 4x4 gauze and tape to stop bleeding.
--- NOTE | 2024-07-23 21:24 | NUR ---
Patient discharged with v/s stable. Written and verbal after care instructions given FOR PERITONSILLAR ABSCESS Patient alert, oriented and verbalized understanding of instructions. Ambulatory with steady gait. All questions addressed prior to discharge. ID band removed. Patient advised to follow up with PMD. Rx of CLEOCIN,MOTRIN given. Opportunity to ask questions provided and answered. WORK NOTE PROVIDED
== END 2024-07-23 21:24 | disposition home or self-care (01) ==
LOC: MED 16:02
DX: J36 Peritonsillar abscess (principal); Z86.39 Personal history of other endocrine, nutritional and metabolic disease; Z85.850 Personal history of malignant neoplasm of thyroid; Z79.899 Other long term (current) drug therapy
CPT/HCPCS: 36415; 70491; 80048; 85025; 87081; 96365; 96372; 96375; 99285; J0295; J1100; J1885; Q9967